=== PATIENT | male | born 1960 | race Caucasian/White ===

== ENCOUNTER 2016-04-24 19:11 | Emergency (ER) | payer BC, OTHER ==
[2016-04-24 18:52] LABS: URINE SOURCE CLEAN CATCH
[2016-04-24 18:55] LABS: URINE APPEARANCE CLEAR; URINE BILIRUBIN NEG (NEG); URINE BLOOD NEG (NEG); URINE COLOR YELLOW; URINE GLUCOSE NEG (NORM); URINE KETONE NEG (NEG); URINE LEUKOCYTE ESTERASE NEG (NEG); URINE NITRATE NEG (NEG); URINE PH 6.5 (5-8); URINE PROTEIN NEG (NEG); URINE SPECIFIC GRAVITY 1.015 (1.003-1.035); URINE UROBILINOGEN 0.2 MG/DL (NORM)
[2016-04-24 18:57] LABS: MICRO INDICATED? NO
[~2016-04-24 19:11] MED LIST: ACETAMINOPHEN PO; ALPRAZOLAM; ALPRAZOLAM ODT0.5 MG; ALPRAZOLAM PO; DILANTIN; DILANTIN KAPSE100 MG PO; DILANTIN PO; HCTZ; HYDROCHLOROTH12.5 M1 PO; HYDROCODON-ACE1 EAC1 PO; LISINOPRIL; LORTAB 7.51 TAB; NORVASC; SOMA PO; TOPROL XL 50 MG50 MG; TOPROL XL100 MG PO; VICODIN; XANAX1 MG PO; ZANTAC150 MG; ZANTAC300 MG PO; ZESTORETIC 20/11 TAB PO; ZESTRIL10 M1; ZESTRIL40 MG PO
[2016-04-24] MEDS ORDERED: ZOFRAN ODT4 MG PO (19:32)
== END 2016-04-24 19:32 | disposition left against medical advice (07) ==
LOC: SED 19:11
PROVIDERS: Physician Assistant
DX: R10.13 Epigastric pain (principal); R11.2 Nausea with vomiting, unspecified; I10 Essential (primary) hypertension
CPT/HCPCS: 81003; 99283; J2405